=== PATIENT | male | born 1935 | race Caucasian/White ===

== ENCOUNTER 2016-05-14 21:27 | Inpatient (IN) | payer OTHER, BC ==
[~2016-05-14] VITALS: Ht 175.3 cm; Wt 123.4 kg
--- NOTE | 2016-05-14 22:15 | NUR ---
PT PRESENTS TO ED WITH C/O DIARRHEA AND GENERALIZED BODY WEAKNESS X6 DAYS. PT DENIES ANY N/V/C. PT REPORTS BODY ITCHING "FOR ABOUT A MONTH". PT REPORTS BROWN COLORED URINE. PT STATES HE HAS BEEN SEEING HIS PRIMARY MD REGARDING ABNORMAL LIVER TESTS AND HAS UPCOMING APPT FOR A "LIVER SCAN". PT DENIES ANY PAIN AT THIS TIME. RESPIRATIONS EVEN AND UNLABORED. NO ACUTE DISTRESS NOTED. BED IN LOW POSITION. CALL LIGHT WITHIN REACH.
--- NOTE | 2016-05-14 22:18 | NUR ---
DR. FLYNN AT BEDSIDE FOR MSE.
[2016-05-14 22:44] LABS: PLATELET COUNT 181 x10^3mcL (130-400)
[2016-05-14 22:47] LABS: RED CELL DISTRIBUTION WIDTH 18.9 % (11.5-14.5)
[2016-05-14 23:00] LABS: CALCIUM 9.4 mg/dL (8.5-10.1); CARBON DIOXIDE 23.1 mmol/L (21-32); CHLORIDE SERUM 104 mmol/L (98-107); CREATININE SERUM 2.2 mg/dL (0.7-1.3); GLUCOSE SERUM 204 mg/dL (74-106); POTASSIUM SERUM 5.4 mmol/L (3.5-5.1); SODIUM SERUM 137 mmol/L (136-145)
[2016-05-14 23:13] LABS: ALBUMIN 3.3 g/dL (3.4-5.0); ALKALINE PHOSPHATASE 657 U/L (46-116); ALT/SGPT 219 U/L (16-63); AMYLASE 89 U/L (25-115); AST/SGOT 306 U/L (15-37); BILIRUBIN TOTAL 4.2 mg/dL (0.20-1.00); LIPASE 887 IU/L (73-393)
[2016-05-14 23:22] LABS: METAMYELOCTE 3 % (0-2); MONOCYTE 10 % (0-7); SEGMENTED NEUTROPHILS 68 % (37-75)
[2016-05-14 23:24] LABS: PLATELET MORPHOLOGY LARGE PLATELET SEEN; rbc morphology (normal/abnorm) ABNORMAL (NORMAL)
--- NOTE | 2016-05-15 00:47 | NUR ---
PT REQ TO TAKE HOME MED OF INSULIN. PT INSTRUCTED TO NOT TAKE INSULIN AND THAT MEDICATIONS WILL BE PROVIDED DURING HOSPITAL STAY. PT VERBALIZED UNDERSTANDING. MADE AWARE.
[2016-05-15 00:51] LABS: UA SPECIFIC GRAVITY 1.015 (1.005-1.035); microscopic required? YES; urine erythrocyte 3+ (NEGATIVE)
--- NOTE | 2016-05-15 01:47 | NUR ---
PT SITTING IN BED, IN POSITION OF COMFORT. PT DENIES ANY PAIN AT THIS TIME. RESPIRATIONS EVEN AND UNLABORED. NO ACUTE DISTRESS NOTED. BED IN LOW POSITION. CALL LIGHT WITHIN REACH.
[2016-05-15] MEDS ORDERED: ZEBETA5 MG PO (01:56)
[2016-05-15] MEDS ORDERED: JANUMET 50-1,01 EACH PO (01:57)
[2016-05-15] MEDS ORDERED: LOSARTAN POTASS50 M1 PO (01:57)
[2016-05-15] MEDS ORDERED: LANSOPRAZOLE30 M2 PO (01:58)
[2016-05-15] MEDS ORDERED: COUMADIN7.5 MG PO (01:58)
[2016-05-15] MEDS ORDERED: DETROL LA2 MG PO (01:58)
[2016-05-15] MEDS ORDERED: LEVEMIR100 U/M1 SC (01:59)
[2016-05-15] MEDS ORDERED: DORZOLAMIDE HYD10 ML OU (01:59)
[2016-05-15 02:33] LABS: CHOLESTEROL/HDL RATIO 8.7
--- NOTE | 2016-05-15 02:40 | NUR ---
PT LAYING IN BED, IN POSITION OF COMFORT. RESPIRATIONS EVEN AND UNLABORED. NO ACUTE DISTRESS NOTED. BED IN LOW POSITION. CALL LIGHT WITHIN REACH.
[2016-05-15 02:42] LABS: T3 TOTAL 0.91 ng/mL
--- NOTE | 2016-05-15 02:50 | NUR ---
REPORT GIVEN TO ERICA CRUZ.
[2016-05-15 02:51] LABS: FREE T4 1.21 ng/dL (0.76-1.46); FREE THYROXINE INDEX 2.7 ug/dL (1.4-4.5); T4(THYROXINE) 10.3 ug/dL (4.7-13.3)
[2016-05-15 03:12] VITALS: BP 154/71
--- NOTE | 2016-05-15 03:14 | NUR ---
DURING TRANSPORT, PT NOTIFIED ME THAT HE TOOK HIS OWN HOME DOSE OF INSULIN. PT STATES, "I TOOK IT ABOUT AN HOUR AGO, I TOOK 70 UNITS OF LEVAMIR". NOTIFIED ERICA CRUZ UPON TRANSFER OF PT.
--- NOTE | 2016-05-15 03:30 | NUR ---
RECEIVED PT ON THE FLOOR. PT IN NO ACUTE DISTRESS OR DISCOMFORT. AOX4. DENIES OF BYRNE/DIZZINESS. ON TELE MON 10 SR WITH PVCS. PT DENIES OF CHEST DISCOMFORT. PER PULSES STRONG. NEG ON EDEMA. IN RA WITH SAT OF 98%. BREATHING EVENLY AND UNLABORED. NO SOB NOTED. BS ACTIVE. ABD ROUND AND OBESE. LAST BM 05/14/16. PT VOIDS FREELY WITHOUT ANY PAIN. GEN WEAKNESS. AMB ASSIST. USES CANE AT THE BEDSIDE. GEN JAUNDICE ON SKIN AND MILD JAUNDICE ON SCLERA. PT REPORTS OF SCRATCHING SELF AND HAS LFA DRY SCABS THAT ARE RESIDENT SERVICES MANAGER AND NO DRAINAGE NOTED. DENIES OF ANY PAIN. IV ON LAC PATENT. SAFETY MEASURES ENSURED. INSTRUCTED PT TO CALL FOR ANY NEEDS/ASSISTANCE. CALL LIGHT WITHIN REACH. WILL CONT TO MONITOR PT.
--- NOTE | 2016-05-15 03:30 | NUR ---
PT HAS REPORTED TO HAVE MEDICATED HIMSELF WITH 70 U OF LEVEMIR IN THE ED FOR 180 BS, WITH THE APPROVAL OF DR LOMBARDO. CHECKED BS ON THE FLOOR WITH THE VALUE OF 176. PT ALERT ORIENTED X4. DENIES ANY HYPOGLYCEMIC SYMPTOMS. WILL CONT TO CLOSELY MONITOR.
--- NOTE | 2016-05-15 05:30 | NUR ---
PT SLEPT COMFORTABLY AFTER ADMITTING PROCESS. IN NO ACUTE DISTRESS OR DISCOMFORT. EASILY AROUSABLE. SAFETY MEASURES ENSURED. CALL LIGHT IS WITHIN REACH.
--- NOTE | 2016-05-15 07:20 | NUR ---
RECEIVED REPORT FROM NOC RN AT THIS TIME. PATIENT IS GETTING AN ULTRA SOUND DONE. PATIENT IS AWAKE, ALERT AND OX4 TELE # [address] ON ROOM AIR, NO DISTRESS NOTED. IV TO LAC IS IN PLACE. SCDS AT THE BEDSIDE. INSTRUCTED ON USE OF CALL LIGHT. WILL CONTINUE TO MONITOR.
[2016-05-15 07:36] LABS: MAGNESIUM 1.9 mg/dL (1.8-2.4); PHOSPHOROUS 3.3 mg/dL (2.5-4.9)
--- NOTE | 2016-05-15 07:37 | NUR ---
BEDSIDE BLOOD GLUCOSE 118 AT THIS TIME. PATIENT AWAKE ALERT AND ORIENTED X4. WILL CONTINUE TO MONITOR.
[2016-05-15 07:50] LABS: BILIRUBIN DIRECT 3.63 mg/dL (0.0-0.2); BILIRUBIN TOTAL 4.2 mg/dL (0.20-1.00)
[2016-05-15 08:40] VITALS: BP 121/63
--- NOTE | 2016-05-15 09:24 | NUR ---
ECHO NOT DONE. PT. WAS FEELING VERY ANXIOUS AND DID NOT WANT TEST. PT. STATED HE HAD A ECHO DONE TWO PRIOR AT DR. BECKFORD OFFICE AND HAS REQUESTED FOR RESULTS TO BE SENT.
[2016-05-15 11:46] LABS: PLATELET COUNT 158 x10^3mcL (130-400)
[2016-05-15 12:04] LABS: CALCIUM 9.2 mg/dL (8.5-10.1); CARBON DIOXIDE 26.1 mmol/L (21-32); CHLORIDE SERUM 109 mmol/L (98-107); CREATININE SERUM 1.8 mg/dL (0.7-1.3); GLUCOSE SERUM 128 mg/dL (74-106); MAGNESIUM 1.9 mg/dL (1.8-2.4); PHOSPHOROUS 3.3 mg/dL (2.5-4.9); POTASSIUM SERUM 5.2 mmol/L (3.5-5.1); SODIUM SERUM 142 mmol/L (136-145)
--- NOTE | 2016-05-15 12:13 | NUR ---
PATIENT RESTING IN BED, NO DISTRESS NOTED. TECH IN TO [facility] ECHO AT THIS TIME. CALL LIGHT WITH IN REACH. WILL CONTINUE TO MONITOR.
--- NOTE | 2016-05-15 12:15 | NUR ---
PATIENT RESTING IN BED, AWAKE ALERT AND O X4. LLE ELEVATED ON PILLOWS WITH K PAD IN PLACE. PATIENT STATES HE HAS THROBBING PAIN TO LLE 7/10. WILL MEDICATE ORDRED FOR PAIN. WILL CONTINUE TO MONITOR.
[2016-05-15 12:26] LABS: RED CELL DISTRIBUTION WIDTH 18.9 % (11.5-14.5)
[2016-05-15 12:28] LABS: MONOCYTE 9 % (0-7); MYELOCYTE 2 % (0-2); SEGMENTED NEUTROPHILS 70 % (37-75); rbc morphology (normal/abnorm) ABNORMAL (NORMAL); target cell (codocyte) 1+
--- NOTE | 2016-05-15 13:11 | NUR ---
NOTIFED DR. KEISHA Sifuentes 5.2 AT THIS TIME
[2016-05-15 13:55] VITALS: BP 140/75
--- NOTE | 2016-05-15 15:58 | NUR ---
PATIENT RESTING IN BED NO DISTRESS NOTED. DENIES ANY PAIN. FAMILY IS AT THE BEDSIDE. WILL CONTINUE TO MONITOR.
[2016-05-15 17:32] VITALS: BP 142/57
--- NOTE | 2016-05-15 18:31 | NUR ---
PATIENT RESTING IN BED, AWAKE, ALERT AND O X 4. TELE # [address] ON ROOM AIR, NO DISTRESS NOTED. DENIES PAIN AT THIS TIME. MILD YELLOWING OF BOTH SCLERAE AND SKIN NOTED. IV TO LAC INTACT AND PATENT INFUSING NS AT 160ML/HR. SCDS AT THE BEDSIDE. FAMILY AT THE BEDSIDE.
--- NOTE | 2016-05-15 19:30 | NUR ---
PT RESTING COMFORTABLY IN BED, IN NO ACUTE DISTRESS OR DISCOMFORT. AAOX4. DENIES OF BYRNE/DIZZINESS. ON TELE MON 10 SR WITH PVCS. DENIES OF ANY CHEST DISCOMFORT. STILL PRESENTING WITH MILD JAUNDICE ON THE SCLERA. PER PULSES MOD. NEG ON EDEMA. SCDS ARE APPLIED. IN RA WITH SAT OF 98%. BREATHING EVENLY AND UNLABORED. NO SOB NOTED. BS ACTIVE. LAST BM TODAY 05/15/16 LOOSE STOOL. ABD ROUND AND OBESE. VOIDS FREELY TO THE BATHROOM WITHOUT ANY PAIN. GEN WEAKNESS. AMBULATES STEADILY WITH A CANE AND ASSISTANCE. GENERALIZED JAUNDICE ON SKIN. PT HAS LFA DRY SCABS FROM SCRATCHING THAT ARE PHARMACEUTICAL SALES AND NO DRAINAGE NOTED. DENIES OF ANY PAIN. IV ON LAC PATENT. SAFETY MEASURES ENSURED. FAMILY IS ON THE BEDSIDE. INSTRUCTED PT AND FAMILY TO CALL FOR ANY NEEDS/ASSISTANCE. CALL LIGHT IS WITHIN REACH. WILL CONT TO MONITOR PT.
[2016-05-15 22:37] VITALS: BP 136/63
--- NOTE | 2016-05-16 05:30 | NUR ---
PT WAS ABLE TO SLEEP COMFORTABLY THROUGH OUT THE NIGHT. WAS IN NO ACUTE DISTRESS OR DISCOMFORT. SAFETY MEASURES ENSURED. CALL LIGHT WITHIN REACH.
[2016-05-16 06:06] VITALS: BP 144/66
[2016-05-16 06:28] LABS: ALKALINE PHOSPHATASE 554 U/L (46-116); ALT/SGPT 209 U/L (16-63); AMYLASE 66 U/L (25-115); AST/SGOT 302 U/L (15-37); BILIRUBIN TOTAL 6.12 mg/dL (0.20-1.00); CALCIUM 8.9 mg/dL (8.5-10.1); CHLORIDE SERUM 115 mmol/L (98-107); CREATININE SERUM 1.5 mg/dL (0.7-1.3); GLUCOSE SERUM 117 mg/dL (74-106); LIPASE 621 IU/L (73-393); MAGNESIUM 1.7 mg/dL (1.8-2.4); PHOSPHOROUS 3.2 mg/dL (2.5-4.9); POTASSIUM SERUM 5.1 mmol/L (3.5-5.1); SODIUM SERUM 146 mmol/L (136-145)
[2016-05-16 06:31] LABS: ALBUMIN 2.7 g/dL (3.4-5.0); TOTAL PROTEIN, SERUM 5.9 g/dL (6.4-8.2)
[2016-05-16 07:12] LABS: PLATELET COUNT 144 x10^3mcL (130-400)
[2016-05-16 07:13] LABS: RED CELL DISTRIBUTION WIDTH 18.8 % (11.5-14.5)
--- NOTE | 2016-05-16 07:30 | NUR ---
PATIENT IS IN BED, AWAKE ALERT AND ORIENTED. HL PATENT, FLUSHED WELL. LUNGS CLEAR ON ROOM AIR. RESP EVEN AND UNLABORED. PT APPEARS TO BE JAUNDICED, NO C/O ITCHING AT THIS TIME. SCD'S IN PLACE. PATIENT NOTED TO HAVE SCRATCHES AND SCABS ON KATIE UPPER EXTREM LUSTERER. PATIENT IS OBESE, ABD SOFT BOWEL SOUNDS ACTIVE. PER PATIENT HE HAS STRESS INCONT AT TIMES. USES URINAL PRN. PATIENT HAS A INTERVERTED PENIS, BUT DENIES HAVING ANY FUNGUS OR REDNESS AT THIS TIME. LBM 2 DYAS AGO PER PT. AMBULATES WITH CANE AD MARY. DENIES ANY PAIN. NPO FOR GI CONSULT AT THIS TIME. WILL CONTINUE TO MONITOR.
--- NOTE | 2016-05-16 07:55 | NUR ---
DR ROWE AND MEDICAL TEAM INTO SEE PATIENT AND DISCUSS PLANO OF CARE.
[2016-05-16 09:17] VITALS: BP 127/49
[2016-05-16 10:06] LABS: BAND NEUTROPHIL 0 % (0-10); BASOPHIL 0 % (0-2); METAMYELOCTE 2 % (0-2); MONOCYTE 8 % (0-7); SEGMENTED NEUTROPHILS 72 % (37-75); rbc morphology (normal/abnorm) ABNORMAL (NORMAL)
[2016-05-16 10:07] LABS: target cell (codocyte) 1+
[2016-05-16 13:30] VITALS: BP 124/76
--- NOTE | 2016-05-16 14:59 | NUR ---
Initial Nutrition Assessment Dx: GI Disorder with Diarrhea poss 2/2 Acute Gastroenteritis PMHx: Hypertension (37 years), Diabetes Mellitus (37 years), Glaucoma, b/l eyes (6 years), b/l Macular-Degeneration (5 years), Morbid Obesity, Ascending Aortic Anurysm s/p Repair w/ Insertion of Medtronic Aortic Dc Valved Collagen Conduit (02/[address] Stephen Huggins, @[facility]), Aortic Valve Replacement with Medtronic Aortic, Dc Valved Collagen Conduit (mechanical valve, 02/[address] Stephen Huggins, @[facility]), h/o Lymphoma s/p biopsy, benign PSHx: Appendectomy (at 20yo), Cholecystectomy, Cataract Removal (left eye, 11/2012), Hernia Repair (right, inguinal (47yo)), Ascending Aortic Anurysm and Aortic Valve Replacement w/ medtronic, aortic, dc valved collagen conduit (02/2002, by Dr. Huggins, @[facility]), Tonsillectomy, Vasectomy x2, bone spur b/l heels removed, Eye Lid Surgery, b/l (1987) Labs: Na+ 146H, BG 117H, BUN 26H, Cr 1.5H, Alb 2.7L, A1C 6.1, T Bili 6.12H, AST 302H, ALT 209H, ALP 554H, Lipase 621H, Mg 1.7L, H/H 9.9/30L Meds: takes Warfarin at home, colace, D50, humulin R, kayexalate, morphine, protonix, theragran, vitamin K, zofran Current Diet Order: Full Liquids (05/16-Lunch) PO Intakes: 100% L (05/16) Ht: 175cm,69". Wt: 274lbs, 124.73kg. BMI: 40.6 kg/m2 (Obese Class III) IBW:160 lb,72.7 kg. %IBW: 171%. UBW: unable to obtain Age: 81 Y/O M Food Allergies: NKFA Skin:has dry scabs from scratching- no pressure injuries . Seven:19 Edema: None noted GI: bowel sounds active, abd round and obese. Last BM:1 formed (05/15) MD Consult: coumadin toxicity, would benefit from coumadin teaching w/ dietary focus. RN Trigger: N/V/D > 3 days Pt admitted w/GI Disorder with Diarrhea poss 2/2 Acute Gastroenteritis. As per doctor's progress note 05/16-PT 40.9 (high), INR 3.9 (high), PTT 61.2 (prolonged) - collected 05/16/16 at 5:45, Stool culture: Shiga toxin 1 and 2 negative, ECG showed normal sinus rhythm, left axis deviation and left ventricular hypertrophy with repolarization abnormality. Hep Panel was non-reactive. Pt seen at bedside w/ no family present, pt had increased adiposity in abd region and extremities consistent w/ BMI, the pt appeared to be depressed, when the RD introduced self the pt requested not to speak to RD d/t just being told by Dr. Bee that he may have pancreatic cancer, the RD acknowleged and left educational materials on bedside table and exited the room, the RD spoke to CAR LOT ATTENDANT, reports the pt consumed 100% of full liquid tray for lunch, denies GI issues. The RD F/U w/ Dr. Ware in regards to Dr. Bee's visit w/ pt, he states Dr. Bee does suspect pancreatic cancer and the plan is to due an MRCP when the INR goes down. The RD will attempt to F/U to review w/ pt on diet and coumadin DNI when the pt is more agreeable. Malnutrition alert form completed 05/16/2016. Problem with: N: None. V: None. D: none. C: None. Problem with: Chewing: None. Swallowing: None. Current Appetite: Good Recent Weight Change: unable to assess % Weight Change: unable to assess Vitamin/Supplement Use: unable to obtain Diet at Home: unable to obtain Physical Activity: ambulates via cane Education: none Estimated Nutritional Needs Based on IBW 160 lb, 72.7kg Energy: 9757-3593 kcal/day (25-30 kcal/kg for Geriatric Maintenance) Protein: 73-87 g/day (1-1.2 g/kg for Geriatric Maintenance) Fluid: 2137-8383 ml/day (25-30 ml/kg for Geriatric Maintenance) or per MD Nutrition Diagnosis 1. Food and nutrition related knowledge deficit related to no prior nutrition education on coumadin and vitamin K foods 2/2 taking coumadin at home, coumadin toxicity as evidenced by pt w/ Nutrition education consult Intervention 1. C/W Full Liquid diet. 2. If pt is able to tolerate diet, consider advancing to [facility] 60gm +Cardiac. Make food preferences known. 3. If pt is unable to tolerate diet w/in 5-7 days, consider TPN. 4. B-complex and Folic acid daily. Monitor/Evaluate Goal: PO intakes to meet >/=75% of estimated needs w/ tolerance; Pt open to nutrition education at F/U Monitor: PO intakes/tolerance, labs, skin integrity, GI function, wt, nutrition knowledge F/U in 2-3 days as HIGH risk (05/18-05/19)
--- NOTE | 2016-05-16 15:22 | NUR ---
1. C/W Full Liquid diet. 2. If pt is able to tolerate diet, consider advancing to [facility] 60gm +Cardiac. Make food preferences known. 3. If pt is unable to tolerate diet w/in 5-7 days, consider TPN. 4. B-complex and Folic acid daily.
--- NOTE | 2016-05-16 16:30 | NUR ---
DR VALDES NOTIFIED OF PATIENT'S MG LEVEL OF 1.7.
--- NOTE | 2016-05-16 16:31 | NUR ---
DR LAU AND DR VARGAS HAVE BEEN INTO SEE PATIENT THIS AFTERNOON. PATIENT INSTRUCTED ON THE NEED OF STOOL COLLECTION. DR SMITH HAS BEEN IN TO SPEAK TO PATIENT ABOUT PATIENT'S PLAN OF CARE AND ANY CONCERNS PATIENT HAS. NO ACUTE DISTRESS NOTED AT THIS TIME. WILL CONTINUE TO MONITOR.
[2016-05-16 17:00] VITALS: BP 118/85; BP 90/55
--- NOTE | 2016-05-16 18:05 | NUR ---
PATIENT SITTING UP IN BED. NO CHANGE IN CONDITION NOTED. WILL ENDORSE TO NOC NURSE.
--- NOTE | 2016-05-16 19:55 | NUR ---
RECEIVED PT FROM AM NURSE IN NO ACUTE DISTRESS. LAYING IN BED COMFORTABLY. A/OX4. TELE #10 SR WITH PACS. DENIES ANY PAIN AT THIS TIME. PULSES PALPABLE AND EVEN. NO EDEMA NOTED. LUNGS CLEAR ON RA. BS ACTIVE X4 QUADRANTS. INFORMED PT OF STOOL COLLECTION. VOIDS FREELY. GENERALIZED WEAKNESS NOTED. AMBULATORY WITH CANE. CANE AT BEDSIDE. MILD JAUNDICE NOTED. SKIN WARM DRY AND INTACT. IV TO LAC INTACT AND PATENT. SALINE LOCK AT THIS TIME. BED IN LOWEST POSITION. CALL LIGHT INSTRUCTIONS REINFORCED. FAMILY AT BEDSIDE. WILL CONT TO MONITOR.
[2016-05-16 21:34] VITALS: BP 148/56
--- NOTE | 2016-05-17 05:14 | NUR ---
SLEPT PERIODICALLY THROUGHOUT SHIFT. NO SIGNIFICANT CHANGES. ALL NEEDS MET AND ATTENDED TO. WILL CONT TO MONITOR AND ENDORSE ALL CARE TO ONCOMING NURSE.
[2016-05-17 05:54] LABS: PLATELET COUNT 152 x10^3mcL (130-400)
[2016-05-17 06:06] VITALS: BP 144/69
[2016-05-17 06:12] LABS: CALCIUM 9.4 mg/dL (8.5-10.1); CARBON DIOXIDE 23.7 mmol/L (21-32); CHLORIDE SERUM 112 mmol/L (98-107); CREATININE SERUM 1.3 mg/dL (0.7-1.3); GLUCOSE SERUM 174 mg/dL (74-106); POTASSIUM SERUM 4.6 mmol/L (3.5-5.1); SODIUM SERUM 145 mmol/L (136-145)
[2016-05-17 07:14] LABS: RED CELL DISTRIBUTION WIDTH 19.2 % (11.5-14.5)
--- NOTE | 2016-05-17 07:30 | NUR ---
PATIENT IS SITTING UP IN BED. REMAINS JAUNDICED. DENIES ANY PAIN OR DISCOMFORT. HL PATENT. RESP EVEN AND UNLABORED, LUNGS CLEAR ON ROOM AIR. PATIENT IS OBESE ABD SOFT BOWEL SOUNDS ACTIVE. VOIDING WELL, USES URIANL. LBM THREE DAYS AGO. TOLERATING FULL LIQUID DIET WELL. NO EDEMA NOTED. SCD'S IN PLACE. WILL CONTINUE TO MONITOR.
--- NOTE | 2016-05-17 07:45 | NUR ---
DR Gaston LAU AT BEDSIDE TO SPEAK WITH PATIENT AND PATIENT'S DAUGHTER ABOUT PLAN OF CARE.
--- NOTE | 2016-05-17 08:00 | NUR ---
DR CURRY AND MEDICAL TEAM INTO SEE PATIENT AND DISCUSS PLAN OF CARE. PATIENT'S DAUGHTER WAS AT BEDSIDE.
[2016-05-17 09:43] LABS: ATYPICAL LYMPH 2 %; BAND NEUTROPHIL 0 % (0-10); BASOPHIL 0 % (0-2); MONOCYTE 7 % (0-7); SEGMENTED NEUTROPHILS 62 % (37-75); rbc morphology (normal/abnorm) ABNORMAL (NORMAL)
[2016-05-17 09:45] LABS: PLATELET MORPHOLOGY PLATELETS NORMAL
[2016-05-17 10:30] LABS: BILIRUBIN DIRECT 9.99 mg/dL (0.0-0.2)
[2016-05-17 10:47] LABS: ALBUMIN 2.8 g/dL (3.4-5.0); TOTAL PROTEIN, SERUM 5.9 g/dL (6.4-8.2)
[2016-05-17 10:48] LABS: BILIRUBIN TOTAL 12.22 mg/dL (0.20-1.00)
--- NOTE | 2016-05-17 10:55 | NUR ---
DR VALDES PAGED PATIENT'S BILI RESULTS AT THIS TIME.
[2016-05-17 12:57] VITALS: BP 120/59
--- NOTE | 2016-05-17 13:17 | NUR ---
PATIENT HAS BEEN OOB AMBULATING AD MARY WITH USE OF HIS CANE. PATIENT NPO FOR MRI TODAY. CHECK OFF LIST COMPLETED AND PATIENT SIGNED. DAUGHTER HAS BEEN INTO SEE PATIENT. NO ACUTE DISTRESS NOTED. DR VALDES NOTIFIED OF PATIENT'S BILI LABS TODAY.
--- NOTE | 2016-05-17 14:00 | NUR ---
PATIENT WENT DOWN TO [place] FOR MRI ORDERED VIA W/C. WILL CONTINUE TO MONITOR UPON RETURN TO THE FLOOR.
--- NOTE | 2016-05-17 16:01 | NUR ---
PATIENT BACK FROM MRI. SITTING UP IN BED WITH FAMILY MEMBERS AT BEDSIDE. DENIES ANY PAIN OR DISCOMFORT. PATIENT WAS GIVEN MS IV WHEN DOWN FOR MRI FOR C/O BACK PAIN 09/22 WHILE LYING FLAT FOR TEST BY TWILA RN. NO ACUTE DISTRESS NOTED. WILL CONTINUE TO MONITOR.
[2016-05-17 17:16] VITALS: Ht 175.3 cm; Wt 123.4 kg
--- NOTE | 2016-05-17 17:35 | NUR ---
HEPARIN DRIP STARTED AT 1500U/HR BY LAVON CRUZ ORDERED. NEXT PTT ORDERED FOR 2335. PATIENT SIGNED CONSENT FOR ERCP AND MOD SEDATION AFTER SPEAKING TO DR LAU AND SRAAH. NPO AFTER MIDNOC. DAUGHTER AT BEDSIDE. WILL CONTINUE TO MONITOR.
--- NOTE | 2016-05-17 17:36 | NUR ---
HEPARIN DRIP STARTED ORDERED. HEPARIN BOLUS OF 7400 UNITS GIVEN AND HEPARIN DRIP STARTED AT 1500 UNITS/HR. NEXT PTT ORDERED AT 2335H PER PROTOCOL.
[2016-05-17 18:23] VITALS: BP 108/62
--- NOTE | 2016-05-17 19:32 | NUR ---
RECEIVED REPORT FROM PREVIOUS SHIFT. PT IS A/OX4. DENIES CHEST PAIN/PRESSURE. DENIES SOB ON RA. IV PATENT AND INFUSING WELL WITH NO S/S OF INFILTRATION. HEPARIN DRIP INFUSING AT 1500 UNITS/HR PER PROTOCOL. PTT TO BE DRAWN AT 2330. DAUGHTER NILESH AT BEDSIDE. CALL LIGHT WITHIN REACH, BED IN LOW POSITION. WILL CONTINUE TO MONITOR.
[2016-05-17 21:34] VITALS: BP 104/40
--- NOTE | 2016-05-18 00:36 | NUR ---
AFTER 1L BOLUS BP 165/65, MAP 88. NO ACUTE DISTRESS. WILL CONTINUE TO MONITOR
--- NOTE | 2016-05-18 01:08 | NUR ---
HEPARIN INFUSION HELD FOR 1 HOUR PER PROTOCOL FOR PTT 115.5. WILL CONTINUE TO MONITOR
[2016-05-18 05:51] VITALS: BP 146/62
[2016-05-18 06:22] LABS: PLATELET COUNT 150 x10^3mcL (130-400)
[2016-05-18 06:35] LABS: CALCIUM 9.2 mg/dL (8.5-10.1); CHLORIDE SERUM 112 mmol/L (98-107); CREATININE SERUM 1.3 mg/dL (0.7-1.3); GLUCOSE SERUM 166 mg/dL (74-106); POTASSIUM SERUM 4.9 mmol/L (3.5-5.1); SODIUM SERUM 145 mmol/L (136-145)
[2016-05-18 06:45] LABS: RED CELL DISTRIBUTION WIDTH 19.4 % (11.5-14.5)
--- NOTE | 2016-05-18 07:10 | NUR ---
REASSESSMENT DONE. PT IN LOW FOWLERS. COOPERATIVE OF CARE. ON TELE 10 DENIES CP, SOB. JAUNDICE NOTED TO SCLERAE, FACE. PT DENIES NAUSEA, VOMITING, DIARRHEA, ABD PAIN. IV HEP LOCKED TO LAC AND LEFT HAND. PT AMBULATES WITH CANE. BED IN LOW POSITION, CALL LIGHT WITHIN REACH. WILL CONTINUE TO MONITOR.
--- NOTE | 2016-05-18 09:50 | NUR ---
PT PICKED UP BY OR STAFF. PT TRANSPORTED VIA BED. NO DISTRESS NOTED AT MOMENT.
[2016-05-18 09:58] LABS: BAND NEUTROPHIL 0 % (0-10); BASOPHIL 0 % (0-2); MONOCYTE 12 % (0-7); SEGMENTED NEUTROPHILS 63 % (37-75)
[2016-05-18 09:59] LABS: PLATELET MORPHOLOGY PLATELETS DECREASED; rbc morphology (normal/abnorm) ABNORMAL (NORMAL)
[2016-05-18 10:35] VITALS: BP 163/64
--- NOTE | 2016-05-18 12:02 | NUR ---
PT BACK FROM GI LAB. TRANSPORTED VIA BED. PT SLEEPY. VS STABLE AT MOMENT. MADE COMFORTABLE IN BED. CALL LIGHT WITHIN REACH. WILL CONTINUE TO MONITOR.
[2016-05-18 15:25] VITALS: BP 139/47
[2016-05-18 18:25] VITALS: BP 137/59
--- NOTE | 2016-05-18 19:00 | NUR ---
PT IN FOWLERS. NO DISTRESS NOTED AT MOMENT. PT REMAINS JAUNDICED AT SCLERAE. HEPARIN ORDERS TO BE RESUMED, ENDORSED CARE TO ONCOMING NURSE.
--- NOTE | 2016-05-18 19:47 | NUR ---
PT. AWAKE, ALERT, ORIENTED X4, DENIES HEADACHE OR DIZZINESS. BREATH SOUNDS CLEAR THROUGHOUT LUNG GAY, RESP. EVEN, UNLABORED. NO SOB NOTED. DENIES ANY CHESTPAIN. ABD. SOFT AND ROUND, BOWEL SOUNDS ACTIVE. PEDAL PULSES STRONG KATIE, NO EDEMA NOTED TO EXTREMITIES. IV HEPLOCKED AT THIS TIME. HEPARIN ORDER BEING CLARIFIED BY MUTUEL MACHINE OPERATOR. COUMADIN PO ORDERED FOR 1999 TONIGHT. SON AT BEDSIDE. CALL LIGHT WITHIN REACH.
--- NOTE | 2016-05-18 20:44 | NUR ---
Dr. Garcia called and updated regarding pts Heparin drip and Coumadin. Dr. Garcia wants the Heparin resume and to follow Heparin protocol. Dr. Burt made aware.
--- NOTE | 2016-05-18 22:07 | NUR ---
PTT LEVEL 31.6. HEPARIN PROTOCOL RESTARTED. PT. RECEIVED BOLUS OF 7400 UNITS OF HEPARIN. HEPARIN DRIP STARTED AT 1500 UNITS. NEXT PTT ON 05/19 AT 0400.
[2016-05-18 22:16] VITALS: BP 140/55
--- NOTE | 2016-05-19 02:24 | NUR ---
PT. APPEARS TO BE COMFORTABLE, EYES CLOSED AND SNORING. NO C/O PAIN THUS FAR. CALL LIGHT REMAINS WITHIN REACH.
[2016-05-19 04:58] LABS: PLATELET COUNT 148 x10^3mcL (130-400)
[2016-05-19 05:07] LABS: CALCIUM 8.9 mg/dL (8.5-10.1); CARBON DIOXIDE 24.6 mmol/L (21-32); CHLORIDE SERUM 110 mmol/L (98-107); CREATININE SERUM 1.3 mg/dL (0.7-1.3); GLUCOSE SERUM 147 mg/dL (74-106); POTASSIUM SERUM 3.8 mmol/L (3.5-5.1); SODIUM SERUM 142 mmol/L (136-145)
[2016-05-19 05:14] LABS: RED CELL DISTRIBUTION WIDTH 18.7 % (11.5-14.5)
[2016-05-19 05:23] LABS: ATYPICAL LYMPH 2 %; BAND NEUTROPHIL 2 % (0-10); MONOCYTE 9 % (0-7); SEGMENTED NEUTROPHILS 62 % (37-75)
[2016-05-19 05:26] LABS: PLATELET MORPHOLOGY LARGE PLATELET SEEN; rbc morphology (normal/abnorm) ABNORMAL (NORMAL)
--- NOTE | 2016-05-19 05:52 | NUR ---
PT. AWAKE, SITTING UP IN BED, WATCHING TV. NO COMPLAINTS THROUGHOUT THE NIGHT. SLEPT WELL. IV HEPARIN PLACED ON HOLD AND PTT REORDERED AT 0800 PER PROTOCOL. PTT LEVEL CAME BACK GREATER THAN 150. PT. MADE AWARE OF LEVEL AND NEXT BLOOD DRAW. CALL LIGHT REMAINS WITHIN REACH. WILL ENDORSE PT. CARE TO INCOMING NURSE.
[2016-05-19 06:31] VITALS: BP 132/61
--- NOTE | 2016-05-19 07:10 | NUR ---
REASSESSMENT DONE. PT AWAKE, COOPERATIVE OF CARE. PT ON TELE. DIMINISHED LUNG SOUNDS TO BILATERAL BASES. ACTIVE BOWEL SOUNDS TO ALL QUADRANTS. JAUNDICE NOTED TO SCLERAE. PT AMBULATES WITH ASSIST OF CANE. IV TO LFA, LEFT HAND. HEP LOCKED AT MOMENT. BED IN LOW POSITION, CALL LIGHT WITHIN REACH WILL CONTINUE TO MONITOR.
[2016-05-19 08:49] VITALS: BP 132/60
[2016-05-19 09:21] LABS: BILIRUBIN DIRECT 4.97 mg/dL (0.0-0.2); BILIRUBIN TOTAL 5.98 mg/dL (0.20-1.00)
[2016-05-19 09:22] LABS: ALBUMIN 2.7 g/dL (3.4-5.0); TOTAL PROTEIN, SERUM 5.7 g/dL (6.4-8.2)
--- NOTE | 2016-05-19 10:25 | NUR ---
PTT LAB VALUE: 73.8 HEPARIN DRIP RESUMED AT 1300UNITS/HR. PTT ORDERED IN 4HRS. WILL CONTINUE TO MONITOR.
--- NOTE | 2016-05-19 12:20 | NUR ---
PASSED [facility]. PT TOLERATING WELL. PT TALKING TO FAMILY MEMBER. NO DISTRESS NOTED. PT DENIES ABD PAIN. CALL LIGHT WITHIN REACH.
[2016-05-19 12:58] VITALS: BP 149/75
--- NOTE | 2016-05-19 15:50 | NUR ---
RECEIVED PTT LAB VALUE: 63.2. PER PROTOCOL NO CHANGE IN INFUSION RATE. ORDERED PTT FOR 4HRS. WILL CONTINUE TO MONITOR.
[2016-05-19 18:45] VITALS: BP 137/62
[2016-05-19] MEDS ORDERED: LOV40I SC (19:14)
[2016-05-19] MEDS ORDERED: COU5 PO (19:23)
[2016-05-19] MEDS ORDERED: LOV80I SC (19:23)
[2016-05-19] MEDS ORDERED: LIPI20 PO (19:42)
[2016-05-19 19:54] VITALS: BP 137/62
--- NOTE | 2016-05-19 20:37 | NUR ---
BED AVAILABLE AT [facility]. PT. MADE AWARE, DAUGHTER AT BEDSIDE WAS ALSO MADE AWARE. INITIAL PLANS WERE FOR DISCHARGE HOME, BUT PT. WILL BE GOING TO [facility]. AWAITING COMPLETTION OF DISCHARGE ORDERS. NIGHT MEDICATION GIVEN, DETROL, EYE DROP, AND COLACE. PT. ALSO GIVEN 6 UNITS OF REGULAR INSULIN FOR BLOOD SUGAR LEVEL OF 229. RECEIVED ORDERS FOR HEPARIN BOLUS OF 3000 UNITS, TO BE GIVEN WHEN [facility] ARRIVES. FAFMILY REMAINS AT BEDSIDE.
[2016-05-19] MEDS ORDERED: LOV40I SQ (20:48)
--- NOTE | 2016-05-19 21:20 | NUR ---
PT. BEING TRANSFERRED OUT TO [facility] VIA [facility], FAMILY AT BEDSIDE. PT. GIVEN IV BOLUS OF 3000 UNITS HEPARIN. IV FLUSHED AND HEPLOCKED THERE AFTER. PT.'S OWN MEDICATION GIVEN TO HIM, HE'S TAKING THEM TO [facility] WITH HIM. BELONGINGS ALSO TAKEN WITH FAMILY AND SOME ACCOMPANYING HIM TO [facility]. ALL CONCERNS ADDRESSED.
--- NOTE | 2016-05-19 21:57 | NUR ---
REPORT GIVEN TO ANTHONY GUILLERMO. ACCEPTING NURSE ON BREAK AT THIS TIME. [facility] PHONE NUMBER MADE AVALIABLE TO NURSE AT [facility].
== END 2016-05-19 21:19 | disposition short-term general hospital (02) | DRG 435 ==
LOC: ED 21:27 → DU 05-15 01:44
PROVIDERS: Emergency Medicine; Family Medicine; Internal Medicine Gastroenterology; ADMIT Family Medicine
PROC: 0F798DZ Dilation of Common Bile Duct with Intraluminal Device, Via Natural or Artificial Opening Endoscopic (ICD-10-PCS; principal; 2016-05-18 09:00)
PROC: 0DJ08ZZ Inspection of Upper Intestinal Tract, Via Natural or Artificial Opening Endoscopic (ICD-10-PCS; principal; 2016-05-18 09:00)
PROC: 0FB98ZX Excision of Common Bile Duct, Via Natural or Artificial Opening Endoscopic, Diagnostic (ICD-10-PCS; principal; 2016-05-18 09:00)
PROC: BF10YZZ Fluoroscopy of Bile Ducts using Other Contrast (ICD-10-PCS; 2016-05-18 09:00)
DX: C25.9 Malignant neoplasm of pancreas, unspecified (principal); K85.90 Acute pancreatitis without necrosis or infection, unspecified; N17.0 Acute kidney failure with tubular necrosis; E43 Unspecified severe protein-calorie malnutrition; K83.1 Obstruction of bile duct; B37.49 Other urogenital candidiasis; Z68.41 Body mass index [BMI] 40.0-44.9, adult; N18.4 Chronic kidney disease, stage 4 (severe); I13.10 Hypertensive heart and chronic kidney disease without heart failure, with stage 1 through stage 4 chronic kidney disease, or unspecified chronic kidney disease; E11.51 Type 2 diabetes mellitus with diabetic peripheral angiopathy without gangrene; K52.9 Noninfective gastroenteritis and colitis, unspecified; E87.5 Hyperkalemia; E83.42 Hypomagnesemia; E78.5 Hyperlipidemia, unspecified; H40.9 Unspecified glaucoma; E66.01 Morbid (severe) obesity due to excess calories; R80.8 Other proteinuria; T45.515A Adverse effect of anticoagulants, initial encounter; Y92.018 Other place in single-family (private) house as the place of occurrence of the external cause; Z79.4 Long term (current) use of insulin; Z95.2 Presence of prosthetic heart valve; Z87.891 Personal history of nicotine dependence
CPT/HCPCS: 43235; 43262; 74181; 82962; 83880; 84439; 87046; 87046-59; C1769; C2625; C9113; J0295; J1610; J1644; J1720; J2175; J2250; J2270; J3010; J3430; J7030; J7040; J7050; Q0092; Q9966; Q9967

== ENCOUNTER → 2016-05-24 | Outpatient (CLI) | payer OTHER, BC ==
[~2016-05-24] MED LIST: COU5 PO; COUMADIN7.5 MG PO; DETROL LA2 MG PO; DORZOLAMIDE HYD10 ML OU; JANUMET 50-1,01 EACH PO; LANSOPRAZOLE30 M2 PO; LEVEMIR100 U/M1 SC; LIPI20 PO; LOSARTAN POTASS50 M1 PO; LOV40I SC; LOV40I SQ; LOV80I SC; ZEBETA5 MG PO
== END | disposition home or self-care (01) ==
LOC: LB 09:50
DX: Z95.2 Presence of prosthetic heart valve (principal)

== ENCOUNTER 2016-06-12 08:03 | Inpatient (IN) | payer OTHER, BC ==
[~2016-06-12] VITALS: Ht 172.7 cm; Wt 124.3 kg
--- NOTE | 2016-06-12 08:05 | NUR ---
PT BIB [facility], FOUND DOWN AT HOME AFTER ATTEMPTING TO USE COMMODE. PT AAOX3 WITH SOME CONFUSION NOTED. PT STATED FEELING GENERALIZED WEAKNESS, MORE NOTED TO LT LEG.
--- NOTE | 2016-06-12 08:45 | NUR ---
PT TAKEN OFF OF BED VALDOVINOS. PT STATED FEELING CONSTIPATED. RADIOLOGY AT BEDSIDE.
--- NOTE | 2016-06-12 08:49 | NUR ---
PT OFF TO CT SCAN.
[2016-06-12] MEDS ORDERED: COUMADIN5 MG PO (08:53)
[2016-06-12] MEDS ORDERED: ZOLOFT50 MG PO (08:54)
[2016-06-12 09:03] LABS: PLATELET COUNT 177 x10^3mcL (130-400)
[2016-06-12 09:04] LABS: CALCIUM 8.8 mg/dL (8.5-10.1); CARBON DIOXIDE 16.3 mmol/L (21-32); CHLORIDE SERUM 104 mmol/L (98-107); CREATININE SERUM 3.1 mg/dL (0.7-1.3); GLUCOSE SERUM 193 mg/dL (74-106); POTASSIUM SERUM 3.9 mmol/L (3.5-5.1); SODIUM SERUM 140 mmol/L (136-145)
[2016-06-12 09:05] LABS: RED CELL DISTRIBUTION WIDTH 16.4 % (11.5-14.5)
[2016-06-12 09:09] LABS: ALKALINE PHOSPHATASE 424 U/L (46-116); ALT/SGPT 103 U/L (16-63); AST/SGOT 193 U/L (15-37); BILIRUBIN TOTAL 4.17 mg/dL (0.20-1.00); TOTAL PROTEIN, SERUM 6.5 g/dL (6.4-8.2)
[2016-06-12 09:16] LABS: ALBUMIN 2.7 g/dL (3.4-5.0)
[2016-06-12 09:23] LABS: ATYPICAL LYMPH 1 %; BAND NEUTROPHIL 9 % (0-10); METAMYELOCTE 3 % (0-2); MONOCYTE 5 % (0-7); SEGMENTED NEUTROPHILS 78 % (37-75)
[2016-06-12 09:25] LABS: PLATELET MORPHOLOGY LARGE PLATELET SEEN; rbc morphology (normal/abnorm) ABNORMAL (NORMAL)
--- NOTE | 2016-06-12 09:45 | NUR ---
DR GRAF MADE AWARE OF TROP/PTT/WBC. FAMILY AT BEDSIDE.
--- NOTE | 2016-06-12 09:51 | NUR ---
DR GRAF MADE AWARE OF LACTIC ACID
--- NOTE | 2016-06-12 11:01 | NUR ---
PT RESTING IN BED WITH NO C/O PAIN AT THIS TIME. NO DISTRESS NOTED. FAMILY AT BEDSIDE.
--- NOTE | 2016-06-12 11:42 | NUR ---
NOTED ORDER FOR 2L NS BOLUS AT 500ML/HR. 1 ST 1L BAG STARTED AT THIS TIME.
--- NOTE | 2016-06-12 11:50 | NUR ---
ADMITTED PT FROM ED WITH DX SEPSIS. RECEIVED PT A/A/OX4 DENIES BYRNE. RESP EVEN AND UNLABORED WITH CLEAR BS BILAT ON RA. PLACED ON TELE #37 SHOWING NSR. PT DENIES ANY CP/PRESSURE AT THIS TIME. NOTED WITH NONPITTING EDEMA TO BLE. IV TO SL TO LW AND RW WITH NS AT 150ML/HR. ABD SOFT, OBESE, NONTENDER WITH +BS X4. DENIES ANY N/V AT THIS TIME. REPORTS SOME CONSTIPATION WITH LAST BM ON 06/07/16 REPORTED BY PT. PT REQUEST FREQUENT ASSISTANCE WITH BEDPAN REPORTING HE FEELS LIKE HE NEED TO HAVE BM BUT NOTHING HAPPENDS, WILL DISCUSS WITH MD. VOIDING FREELY INSTRUCTED TO USE URINAL TO COLLECT SAMPLE. GEN WEAKNESS S/P FALL AT HOME WHILE ATTEMPTING TO USE BR. PT STATED HE SLID DOWN TO FLOOR WITHOUT LOSS OF CONSIOUSNESS OR INJURY BUT WAS UNABLE TO GET UP ON HIS OWN. PT REPORTS INCREASED WEAKNESS TO LLE. SKIN COOL TO TOUCH INTACT WITH JAUNDICE DISCOLORATION. PT REPORTS RECENT DX OF [place] UNKNOWN SITE AND IS TO START TX AT [place] ON MON. PT ALSO REPORTS APPT WITH DR. VARGAS CARDILOGIST TOMORROW AND DAUGHTER REQUESTED FOR DR. VARGAS TO BE CONSULTED IF CARDILOGIST IS NEEDED. WILL FORWARD TO DR. FITZPATRICK. PT ORIENTED TO ROOM AND CALL LIGHT SYSTEM. SEPSIS PROTOCOL FOLLOW WITH ONGOING FLUID RESUCITATION. CALL LIGHT IN REACH NEEDS ATTENDED TO.
[2016-06-12 11:56] VITALS: BP 112/51
--- NOTE | 2016-06-12 12:26 | NUR ---
BS CHECK 226, NO COVERAGE PT NPO AT THIS TIME.
--- NOTE | 2016-06-12 12:35 | NUR ---
DR. FITZPATRICK AT BEDSIDE EVALUATING PT. MADE AWARE FAMILY CONCERNS. OBTAINED ORDER FOR DULCOLAX SUPP AND ADMINISTED AT THIS TIME. NOTED SOFT STOOL ON INSERTION. PT INSTRUCTED TO AVOID STRAING TOO MUCH AND ALOW BM TO HAPPEN MORE NATURALLY. WILL CONT TO MONITOR.
[2016-06-12] MEDS ORDERED: ACTIGALL300 MG PO (13:18)
[2016-06-12] MEDS ORDERED: NYSTOP100000 U/G TP (13:20)
[2016-06-12 13:54] LABS: CHOLESTEROL/HDL RATIO 4.4; MAGNESIUM 1.5 mg/dL (1.8-2.4); PHOSPHOROUS 3.8 mg/dL (2.5-4.9)
--- NOTE | 2016-06-12 13:55 | NUR ---
1ST BOULS BAG COMPLETED AT 1350, SECOND 1L NS BAG STARTED AT 1354 AT 500ML/HR ORDERED. PT TOLERATING WELL.
[2016-06-12 14:00] LABS: T3 TOTAL 0.73 ng/mL
[2016-06-12 14:04] LABS: FREE T4 1.51 ng/dL (0.76-1.46); FREE THYROXINE INDEX 3.4 ug/dL (1.4-4.5); T4(THYROXINE) 10.2 ug/dL (4.7-13.3)
--- NOTE | 2016-06-12 14:10 | NUR ---
OBTAINED CRITICAL LAB REPORT OF TROP 0.257 AT 1348, AND LA 3.[address] NANETTE ROMERO. MD UP AT FLOOR AT THIS TIME AT PT'S BEDSIDE DISCUSSING POC WITH FAMILY AND OBTAINING FURTHER HX. MADE AWARE AT THIS TIME OF CRITICAL LABS. WILL CONT TO MONITOR.
--- NOTE | 2016-06-12 15:50 | NUR ---
2L NS BOLUS COMPLETED AT THIS TIME. PT CONT WITH REGULAR FLUIDS AT 160ML/HR. TOLERATED WELL. DENIES ANY SOB. WILL CONT TO MONITOR.
[2016-06-12 16:20] VITALS: BP 125/57
[2016-06-12 16:40] VITALS: BP 126/58
--- NOTE | 2016-06-12 16:40 | NUR ---
1620: 1ST POST BOLUS B/P OBTAINED 125/59 WITH MAP 76, O2 SAT 98%. 1640: 2ND POST BOLUS B/P OBTAINED 126/58, MAP 80. PT RESTING COMFROTABLY DENIES ANY DISCOMFORT. CALL LIGHT IN REACH NEEDS ATTENDED TO. MESSAGE SENT TO DR. FITZPATRICK WITH POST BOLUS B/P. WILL CONT TO MONITOR.
--- NOTE | 2016-06-12 18:00 | NUR ---
DR. FITZPATRICK MADE AWARE OF KUB RESULT OF ILEUS VIA PAGE GATE. AWAITING ORDERS.
--- NOTE | 2016-06-12 18:30 | NUR ---
PT RESTING COMFORTABLY AT THIS TIME. WITH IVF NS AT 160 TO RW. PT HAS HAD MULTIPLE BM SINCE SUPP. ONE FORMED AND 3 SMALL SOFT/LOOSE STOOLS. PT REPORTS HE FEELS BETTER AFTER BM. NO ABD DISCOMFORT, N/V. VSS. CALL LIGTH IN REACH NEEDS ATTENDED TO.
[2016-06-12 19:19] LABS: UA SPECIFIC GRAVITY 1.015 (1.005-1.035); microscopic required? YES; urine erythrocyte 3+ (NEGATIVE)
--- NOTE | 2016-06-12 19:20 | NUR ---
REPORT GIVEN TO MARIA M CRUZ. MADE AWARE OF HOME MEDS VERIFIED BY PHARMACY AND [facility] INSIDE NIGHT STAND TO BE SENT BACK WITH FAMILY [facility] IN [facility].
--- NOTE | 2016-06-12 19:45 | NUR ---
RECEIVED PT AT BEDSIDE. PT WAS IN THE MIDDLE OF A BOWEL MOVEMENT. PT STATED HE NEEDED MORE TIME. WILL RETURN SHORTLY TO FINISHED ASSESSMENT.
--- NOTE | 2016-06-12 20:12 | NUR ---
PT HAS CTA LUNG SOUNDS ON RA. PULSES PRESEND WITH NO EDEMA NOTED. PT IN NO ACUTE DISTRESS AT THIS TIME. HELPED CLEAN THE PT AND APPLIED Z-SHAUNA TO HIS BUTTOCKS BECAUSE THIS PT HAS HAD 5 BM'S TODAY AND HE IS BED BOUND. NOTIFIED THE PT TO USE CALL LIGHT FOR ANY NEEDS. BED IN LOWEST POSITION. WILL CONTINUE TO MONITOR.
[2016-06-12 22:35] VITALS: BP 102/48
--- NOTE | 2016-06-12 23:05 | NUR ---
SPOKE TO PT'S DAUGHTER. SHE JUST CALLED TO CHECK IN ON HER FATHER BECAUSE HE WAS NOT RETURNING HER TEXT AND SHE GREW CONCERN. I INFORMED HER THAT HE WAS SLEEPING.
[2016-06-12 23:08] VITALS: BP 98/48
--- NOTE | 2016-06-13 02:27 | NUR ---
DR. KUMAR AWARE OF TROP RESULT. PT ON WARFARIN WITH INR OF 2.9
--- NOTE | 2016-06-13 05:19 | NUR ---
THE PT IS SLEEPING COMFORTABLY WITH EVEN RISE AND FALL OF CHEST. NO ACUTE DISTRESS NOTED AT THIS TIME. ALL NEEDS HAVE BEEN MET. THE BED IS SET TO THE LOWEST POSITION AND THE CALL LIGHT IS WITHIN REACH. WILL ENDORSE TO ONCOMING SHIFT.
--- NOTE | 2016-06-13 05:52 | NUR ---
PT IS RESTING COMFORTABLY ON RA, TEXTING WITH HIS CHILDREN. ALL NEEDS HAVE BEEN MET. BED IN LOWEST POSITION AND CALL LIGHT IS WITHIN REACH. WILL ENDORSE TO ONCOMING SHIFT.
[2016-06-13 05:58] VITALS: BP 134/56
[2016-06-13 06:41] LABS: ALKALINE PHOSPHATASE 305 U/L (46-116); ALT/SGPT 117 U/L (16-63); AST/SGOT 193 U/L (15-37); BILIRUBIN TOTAL 1.98 mg/dL (0.20-1.00); CALCIUM 8.2 mg/dL (8.5-10.1); CHLORIDE SERUM 110 mmol/L (98-107); CREATININE SERUM 2.8 mg/dL (0.7-1.3); GLUCOSE SERUM 156 mg/dL (74-106); MAGNESIUM 2.4 mg/dL (1.8-2.4); POTASSIUM SERUM 4.7 mmol/L (3.5-5.1); SODIUM SERUM 144 mmol/L (136-145)
[2016-06-13 06:48] LABS: PLATELET COUNT 131 x10^3mcL (130-400)
[2016-06-13 06:54] LABS: ALBUMIN 2.3 g/dL (3.4-5.0); TOTAL PROTEIN, SERUM 5.7 g/dL (6.4-8.2)
[2016-06-13 07:10] LABS: BASOPHIL % 0 % (0-2); RED CELL DISTRIBUTION WIDTH 17.3 % (11.5-14.5)
--- NOTE | 2016-06-13 07:30 | NUR ---
RECEIVED PT AAOX4. RESP EVEN AND UNLABORED ON RA. NO SOB NOTED. DENIES PAIN. IVF INFUSING. BED IN LOWEST POSITION, CALL LIGHT WITHIN REACH. WILL CONTINUE TO MONITOR.
--- NOTE | 2016-06-13 09:31 | NUR ---
DR. LOMBARDO MADE AWARE OF BLOOD CULTURE RESULTS.
[2016-06-13 10:13] VITALS: BP 133/65
--- NOTE | 2016-06-13 13:20 | NUR ---
ASSISTED PT TO SIT UP ON SIDE OF THE BED. FAMILY AT BEDSIDE. WILL CONTINUE TO MONITOR.
[2016-06-13 13:46] VITALS: BP 137/67
[2016-06-13 18:12] VITALS: BP 120/60
--- NOTE | 2016-06-13 19:00 | NUR ---
PT RESTING IN BED. NO ACUTE DISTRESS. BREATHING EVEN AND UNLABORED ON RA. IVF INFUSING. BED IN LOWEST POSITION, CALL LIGHT WITHIN REACH. WILL ENDORSE TO INCOMING SHIFT.
--- NOTE | 2016-06-13 20:07 | NUR ---
AAO X 4. SPEECH CLEAR AND APPROPRIATE. FOR ERCP IN AM, INSTRUCTED NO EATING OR DRINKING AFTER MIDNIGHT. VERBALIZED UNDERSTANDING. IVF OF NS AG 100ML/HR. VOIDED YELLOW URINE TO URINAL. DENIES HAVING PAIN.
[2016-06-13 21:57] VITALS: BP 149/58
--- NOTE | 2016-06-14 02:14 | NUR ---
late entry: passed small amount of loose stool. hygiene needs attended to. call light within easy reach. breathing even and unlabored on room air. sinus rhythm with pvcs noted, hr 71/min.
--- NOTE | 2016-06-14 05:07 | NUR ---
PT CALLED, STATED HAVING BLOOD IN PHLEGM. INFORMED DR. BURR. DR. BURR WENT IN ROOM TO ASSESS PT. PT STATED HE FEELS BETTER, STATED HE FELT THIS WAS WHAT WAS CAUSING HIS THROAT TO BE UNCOMFORTABLE. PT ON COUMADIN, HX OF HEART VALVE TRANSPLANT. NO NEW ORDERS AT THIS TIME. PT/INR ALREADY ORDERED FOR THIS AM.
[2016-06-14 06:07] LABS: PLATELET COUNT 142 x10^3mcL (130-400)
[2016-06-14 06:08] VITALS: BP 135/64
[2016-06-14 06:23] LABS: CHLORIDE SERUM 113 mmol/L (98-107); POTASSIUM SERUM 4.2 mmol/L (3.5-5.1); SODIUM SERUM 146 mmol/L (136-145)
[2016-06-14 06:30] LABS: BASOPHIL % 0 % (0-2); RED CELL DISTRIBUTION WIDTH 16.4 % (11.5-14.5)
[2016-06-14 06:36] LABS: CALCIUM 8.2 mg/dL (8.5-10.1); CARBON DIOXIDE 19.4 mmol/L (21-32); GLUCOSE SERUM 171 mg/dL (74-106); PHOSPHOROUS 4.3 mg/dL (2.5-4.9)
--- NOTE | 2016-06-14 06:39 | NUR ---
A&0 X 4. BREATHING EVEN AND UNLABORED. DENIES PAIN. NS INFUSING AT 100 ML/HR TO RIGHT HAND WITH NO REDNESS OR SWELLING. NPO SINCE MIDNIGHT FOR PROCEDURE TODAY. BED IN LOW POSITION, CALL LIGHT WITHIN REACH. WILL ENDORSE TO ONCOMING RN.
--- NOTE | 2016-06-14 07:20 | NUR ---
RECEIVED PT IN NO ACUTE DISTRESS. AAOX4. RESP EVEN AND UNLABORED ON RA. NO SOB NOTED. C/O MILD ABD DISCOMFORT BUT TOLERABLE. IVF INFUSING. ASSISTED PT WITH URINAL. IVF INFUSING. BED IN LOWEST POSITION, CALL LIGHT WITHIN REACH. WILL CONTINUE TO MONITOR.
--- NOTE | 2016-06-14 10:14 | NUR ---
PT WENT DOWN FOR STRESS TEST IN NO ACUTE DISTRESS.
[2016-06-14 10:20] VITALS: BP 158/70
--- NOTE | 2016-06-14 11:52 | NUR ---
PT BACK FROM STRESS TEST. NO ACUTE DISTRESS. WILL CONTINUE TO MONITOR.
[2016-06-14 14:00] VITALS: BP 101/32
--- NOTE | 2016-06-14 14:20 | NUR ---
LEXISCAN CARDIOLITE STRESS COMPLETED
--- NOTE | 2016-06-14 14:50 | NUR ---
DR. KUMAR AT BEDSIDE INSERTING PICC LINE.
[2016-06-14 18:00] VITALS: BP 124/57
--- NOTE | 2016-06-14 18:40 | NUR ---
SPOKE WITH DR. LAU AND UPDATED PT WITH NO ERCP PROCEDURE TOMORROW AND TO RESUME COUMADIN PER PROTOCOL. DR. LOMBARDO AWARE. WILL CONTINUE TO MONITOR.
--- NOTE | 2016-06-14 20:00 | NUR ---
PATIENT AWAKE IN BED. RESPIRATION EVEN AND UNLABORED, ON ROOM AIR. ONGOING 0.9% NS AT 125 CC/HR INFUSING WELL AT THE RIGHT WRIST. DENIES PAIN AT THIS TIME. PATIENT HAVE EPISODES OF LOOSE STOOLS. VOIDING FREELY, USES URINAL. GENERALIZED WEAKNESS NOTED. ASSISTED WITH ADL'S NEEDED. BLANCHABLE REDNESS TO BUTTOCKS. ON TELE #37. WILL CONTINUE TO MONITOR.
[2016-06-14 21:45] VITALS: BP 167/71
[2016-06-15 05:31] VITALS: BP 174/77
[2016-06-15 06:21] VITALS: BP 143/64
--- NOTE | 2016-06-15 06:27 | NUR ---
PATIENT RESTING IN BED. RESPIRATION EVEN AND UNLABORED. DENIES PAIN AT THIS TIME. IV SITE TO RIGHT FOREARM PATENT AND INTACT. SALINE LOCK TO LEFT WRIST PATENT AND INTACT. PICC LINE TO LEFT UPPER ARM INTACT. ASSISTED WITH NEEDS. SAFETY OBSERVED. PLACED CALL LIGHT WITHIN REACH AT ALL TIMES.
[2016-06-15 06:47] LABS: BASOPHIL % 0.5 % (0-2); PLATELET COUNT 136 x10^3mcL (130-400)
[2016-06-15 06:49] LABS: RED CELL DISTRIBUTION WIDTH 16.5 % (11.5-14.5)
--- NOTE | 2016-06-15 07:10 | NUR ---
REASSESSMENT DONE. PT AWAKE, COOPERATIVE OF CARE. ABLE TO LET NEEDS KNOWN. IV TO LEFT FOREARM WITH 18GAUGE INFUSING WELL AT 125ML/HR. IV LOCHED TO RIGHT WRIST AND PICC LINE TO ELENA. BED IN LOWEST POSITION, CALL LIGHT WITHIN REACH. WILL CONTINUE TO MONITOR.
[2016-06-15 07:24] LABS: ALKALINE PHOSPHATASE 233 U/L (46-116); ALT/SGPT 64 U/L (16-63); AST/SGOT 56 U/L (15-37); BILIRUBIN TOTAL 1.2 mg/dL (0.20-1.00); CALCIUM 8.7 mg/dL (8.5-10.1); CARBON DIOXIDE 22.1 mmol/L (21-32); CHLORIDE SERUM 114 mmol/L (98-107); CREATININE SERUM 2.9 mg/dL (0.7-1.3); GLUCOSE SERUM 111 mg/dL (74-106); MAGNESIUM 1.9 mg/dL (1.8-2.4); PHOSPHOROUS 4.1 mg/dL (2.5-4.9); POTASSIUM SERUM 3.9 mmol/L (3.5-5.1); SODIUM SERUM 148 mmol/L (136-145)
[2016-06-15 07:28] LABS: ALBUMIN 2.3 g/dL (3.4-5.0); TOTAL PROTEIN, SERUM 5.9 g/dL (6.4-8.2)
--- NOTE | 2016-06-15 09:00 | NUR ---
RECEIVED CALL FROM LAB, PTT: 74.[address] CALVILLO.
[2016-06-15 10:23] VITALS: BP 173/77
[2016-06-15 14:00] VITALS: BP 168/72
--- NOTE | 2016-06-15 14:39 | NUR ---
PT NOTE [id number] Pt IS A 81 Y/O MALE ADMITTED DUE TO C/O GENERALIZED WEAKNESS, FALL SLIPPING OFF THE BED; DX WITH SEPSIS, NSTEMI, CAD. HIP PELVIS XRAY-MILD NARROWING L HIP JT; SEVERE DEG CHANGES LOWER LUMBAR SPINE VENOUS DOPPLER- NO DVT BLE CT HEAD- NO ACUTE IC ABN PMH: BILIARY OBSTRUCTION S/P STENTING, NEWLY DX ADENOCARCINOMA, CDM, HTN, AAA W/P REPAIR Pt STATES HE WOULD BE STAYING WITH DAUGHTER UPON DC FROM HOSPITAL; DAUGHTER'S HOUSE IS 2-SH WITH 8 STEPS; BEDROOM UP. Pt WAS INDEP IN ADLs DOOR MACHINE OPERATOR, ABLE TO AMBULATE USING FWW. DME: 4WW, FWW, SCOOTER, SHOWER CHAIR. Pt WAS CLEARED FOR PT PER RN. Pt WAS FOUND AWAKE RESTING IN BED, AGREED TO PARTICIPATE W/PT. S:DENIES PAIN AT REST O:BP AT REST 156/81, HR 77; SaO2 95% ON ROOM AIR BED MOBILITY: SUPINE<->SIT MAX X2 TRANSFERS: SIT-STAND MAX X2; STAND-SIT MOD X2 GAIT 24 FT FWW MOD ASSIST X2; SLOW CAS WITH DECREASED STRIDE LENGTH; NO ANTALGIC GAIT NOTED; DENIES PAIN ON LEFT HIP DURING GAIT, BUT PAIN IS EXPERIENCED WITH EXAGGERATED LEFT HIP FLEXION. Pt WAS ASSISTED BTB, MADE COMFORTABLE WITH BLANKET, IV LINE INTACT, CALL LIGHT AND TABLE IN REACH; 3 SIDERAILS UP. Pt WAS LEFT IN THE PRESENCE OF THE DAUGHTER AND GRANDDAUGHTER. RN NOTIFIED. A:Pt DEMONSTRATES WEAKNESS, IMPAIRED BALANCE, AND GAIT INSTABILITY REQUIRING MOD ASSIST X2; FALL RISK. Pt WAS EDUCATED ON PROPER HAND PLACEMENT FOR SAFE SIT-STAND TRANSFERS, FAIR RETURN DEMO. P:POC TO CONSIST OF THEREX, THERACT, GAIT TRAINING, BALANCE EX, SAFETY EDUC; ONCE DAILY 6X/WK X1 WEEK. REHAB POST ACUTE IS RECOMMENDED, SNF VS HHPT. DX AND POC DISCUSSED W/DOOR MACHINE OPERATOR. EVAL38 2PA(2) ASSIST [id number], [id number], TUG SCORE=19sec [id number] THEREX FOR BOTH LE PERFORMED IN SITTING INCLUDING LAQ, ANKLE PUMPS, AND SEATED MARCHING; X 1O REPS EACH, AAROM FOR LLE DUE TO PAIN LIMITING MOVEMENT. Pt WAS INSTRUCTED ON AROME FOR BOTH LE TO BE PERFORMED IN SUPINE TOLERATED. THEREX8
--- NOTE | 2016-06-15 15:20 | NUR ---
PASSED AFTERNOON MEDS. PT TOLERATED WELL. NO DISTRESS NOTED. NO REPORTS OF PAIN. FAMILY AT BEDSIDE. CALL LIGHT WITHIN REACH.
--- NOTE | 2016-06-15 15:58 | NUR ---
1. Recommend Mechanical Soft, Chopped, CCHO-75 gm, 2 gm Na diet.
--- NOTE | 2016-06-15 15:58 | NUR ---
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, type 2 DM, HTN, AAA s/p repair PSHx: Appendectomy (20 years old), cholecystectomy, L eye cataract removal (11/2012), R inguinal hernia repair (47 years old), ascending aortic aneurysm, aortic valve replacement with Medtronic, aortic abraham valved collagen conduit (02/2002), tonsillectomy, vasectomy x2, bone spur bilateral heels removed, eye lid surgery bilateral (1987) Labs: Na 148 H, BG 111 H, BUN 31 H, Cr 2.9 H, ALB 2.3 L, TBili 1.2 H, AST 56 H, ALT 64 H, H/H 9.6/29 L; (06/14) Troponin 0.165 H; (06/12) Lactic Acid 3.5 H, A1C 6.1 Meds: D50, humulin R, levemir, Prilosec, NS IV, theragran, zofran Current Diet Order: Mechanical Soft, Chopped, Cardiac Prior Diet Order: Full Liquid PO Intakes: (06/13) B: 80%, L: 100%, D: 10% Ht: 68", 5' 8". Wt: 273 lb, 124 kg. BMI: 41.7 kg/m2 (Obesity Class III) IBW: 154 lb, 70 kg. %IBW: 177%. Adj BW: 184 lb, 84 kg. UBW: 273 lb, 124 kg. Wt Hx: (05/16/16) 274 lb, 125 kg. Age: 81 Y/O M Food Allergies: None Skin: Intact. Seven 17. Edema: 1+ BLE GI: Abd soft, obese. Active bowel sounds. Last BM 06/14. Pt found with transaminitis with severe sepsis secondary to possible cholangitis per doctor's notes. Per doctor's H&P documentation, pt plans to meet with oncologist for chemotherapy, not currently a candidate for Whipple procedure until cardiac status is cleared and loses at least 30-40 lb. Per doctor's progress note, no acute events overnight, stress test with Dr. Barraza pending today, ERCP with Dr. Bee with stent placement Monday, will have appointment with Oncologist next week, receiving IV ABX. Pt was seen resting in bed, and daughter at bedside. Daughter participated mostly in RD verbal interview. Daughter reported that pt did not like the hamburger for lunch due to tiana being too dry. RD offered side of gravy with meals, daughter agreeable for pt to try. Daughter also stated that pt has been eating fairly so far, requested for salads for pt, however, RD noted that pt is on mechanical soft, chopped diet, salads are not offered on menu due to rawness of salads, can be a potential risk for aspiration/swallowing if pt unable to tolerate. Daughter also stated that pt likes fruit, cottage cheese, also mentioned that pt will likely be discharged tomorrow. Daughter had requested for dinner menu for tonight, RD acknowledged, informed S staff to provide. Spoke with Dr. Lindsay, doctor stated that pancreatic CA is suspected, pt already has an appointment with oncologist next week, will start Coumadin tomorrow. RD relayed recommendations to doctor, doctor agreeable. Problem with: N: None. V: None. D: None. C: None. Problems with: Chewing: None. Swallowing: None. Current Appetite: Fair to good Recent Weight Change: Unsure per daughter. % Weight Change: N/A Vitamin/Supplement use: None Diet at Home: Regular Physical Activity: Ambulates with a cane Education: RD left nutrition education materials with pt on prior visit 05/16/16, family declined further education at this time. Estimated Nutritional Needs Based IBW 154 lb, 70 kg Energy: 3955-7791 kcal/day (30-35 kcal/kg for Suspected Pancreatic CA) Protein: 70-105 gm/day (1-1.5 gm/kg for Suspected Pancreatic CA) Fluids: 1750 ml/day (25 ml/kg for Maintenance) or per doctor Nutrition Diagnosis Increase nutritional needs related to increase metabolic demands as evidenced by common bile duct stricture secondary to suspected pancreatic CA, possible severe sepsis secondary to possible cholangitis Intervention 1. Recommend Mechanical Soft, Chopped, CCHO-75 gm, 2 gm Na diet. Monitor/Evaluate Goal: PO intakes to meet at least 50-75% of estimated needs with tolerance Monitor: PO intakes, tolerance to diet, labs, skin integrity, GI function, weights F/U in 3-5 days as MODERATE risk (6-06/20)
--- NOTE | 2016-06-15 16:02 | NUR ---
PT TEARFUL OF DIAGNOSES, EXPRESSING CONCERNS OF MEDICAL OUTCOMES. SAT DOWN WITH PATIENT. ACTIVELY LISTENED TO PATIENT AND PROVIDED PRESENCE. PT STATES FEELING RELIEVE FROM SMALL SESSION. CALL LIGHT WITHIN REACH.
--- NOTE | 2016-06-15 17:31 | NUR ---
DUE MEDS GIVEN. PT TOLERATED WELL. PT STATES HE NEEDS MORE INSULIN AT HOME, INFORMED PRIMARY NURSE
[2016-06-15 17:51] VITALS: BP 162/72
--- NOTE | 2016-06-15 20:00 | NUR ---
AWAKE AND VERBALLY RESPONSIVE WITH SLOGHT HARD OF HEARING. SKIN WARM AND DRY TO TOUCH. RESPIRATION EVEN AND UNLABORED. DENIES ANY PAIN/DICOMFORT AT THIS TIME. CONTINUES ON ATB IVPB WITHOUT ADVERSE REACTION NOTED. WILL CONTINUE TO MONITOR.
[2016-06-15 21:00] VITALS: BP 142/66
--- NOTE | 2016-06-16 00:10 | NUR ---
REPOSIOTNED FOR COMFORT. DENIES ANY PAIN/DISCOMFORT. USES URINAL FOR BLADDER ELIMINATION. KEPT CLEAN AND DRY.
--- NOTE | 2016-06-16 06:22 | NUR ---
ALL DUE MEDICATIONS GIVEN AND WELL TOELRATED. NO ADVERSE REACTION NOTED FROM ATB THERAPY. KEPT CLEAN AND DRY. ALL NEEDS ATTENDED.
[2016-06-16 06:35] VITALS: BP 143/70
[2016-06-16 06:54] LABS: CALCIUM 8.8 mg/dL (8.5-10.1); CHLORIDE SERUM 112 mmol/L (98-107); CREATININE SERUM 2.8 mg/dL (0.7-1.3); GLUCOSE SERUM 105 mg/dL (74-106); MAGNESIUM 1.6 mg/dL (1.8-2.4); PHOSPHOROUS 4.1 mg/dL (2.5-4.9); POTASSIUM SERUM 3.8 mmol/L (3.5-5.1); SODIUM SERUM 146 mmol/L (136-145)
[2016-06-16 07:25] LABS: BASOPHIL % 0.3 % (0-2); PLATELET COUNT 138 x10^3mcL (130-400)
--- NOTE | 2016-06-16 07:25 | NUR ---
REASSESSMENT DONE. PT AWAKE, COOPERATIVE OF CARE. ABLE TO LET NEEDS KNOWN. DENIES CP, SOB, ABD PAIN. IV SITES TO RFA, LEFT WRIST AND PICC LINE ACCESS TO JOSELO. IV INFUSING WELL TO RFA NS AT 70ML/HR. BED IN LOWEST POSITION, CALL LIGHT WITHIN REACH. WILL CONTINUE TO MONITOR.
[2016-06-16 07:41] LABS: RED CELL DISTRIBUTION WIDTH 16.1 % (11.5-14.5)
--- NOTE | 2016-06-16 08:20 | NUR ---
RECEIVED LAB VALUES FROM [facility]. PTT: 75.4; INR: 5.0 DR. LOMBARDO MADE AWARE OF RESULTS. ORDERED FOR PT TO RESUME DIET.
[2016-06-16 09:44] VITALS: BP 161/85
--- NOTE | 2016-06-16 12:25 | NUR ---
BLOOD GLUCOSE: 165 COVERED WITH INSULIN PER SLIDING SCALE. PT TOLERATED WELL. PT DENIES DISCOMFORT AT MOMENT. CALL LIGHT WITHIN REACH.
--- NOTE | 2016-06-16 14:00 | NUR ---
P.T. NOTES [id number] S:Pt WAS SEEN AWAKE & ALERT IN BED, SPEAKS ESTONIAN, ORIENTED x3, ABLE TO FOLLOW COMMANDS, AGREEABLE & COOPERATIVE W/ P.T.; [place]LA[place]OCK; MOTIVATED W/ P.T.; NO C/O PAIN OR DIZZINESS AT THIS TIME; STATES FEELING BETTER TODAY THAN YESTERDAY; C/O (L)LE WEAKNESS. O:BED MOBILITY: MOD/MIN ASSIST IN SUPINE TO SIT, ABDOMEN PROTRUDED TRANSFERS: MOD ASSIST IN SIT TO STAND W/ FWW, MOD/MIN ASSIST W/FWW IN W/C TRANSFERS GAIT: MOD/MIN ASSIST W/ FWW X 42 FT, FOLLOWED W/ W/C FOR SAFETY, ANOTHER P.T. STAFF ON SBA FOR SAFETY, UNABLE TO AMBULATE FARTHER DUE TO WEAKNESS, FATIGUE; (L)KNEE TENDS TO BUCKLE, NO NOTED LOSS OF BALANCE AT THIS TIME STAIRS: MOD/MIN ASSIST+2 PERSONS X 10 STEPS Pt WAS GIVEN THERA EXER UE/LE X 10 REPS. Pt ASSISTED TO BED SAFELY; HOB ELEVATED, CALL CRUZ, PHONE, TABLE IN REACH; APPRECIATIVE; NURSE AWARE; Pt STATES HE SAT UP IN CHAIR THIS MORNING ALREADY W/ NURSE STAFF. A:Pt DEMO GOOD RESPONSE TO TX; FALL RISK, ADENOCARCINOMA; Pt EDUC ON SAFE GAIT, STAIR MGMT, HAND PLACEMENT FOR SAFE TRANSFERS, HEP, USE OF CALL LIGHT FOR NURSE ASSIST, VERBALIZED UNDERSTANDING, GOOD FOLLOW THRU; WADDLING GAIT, NARROW MONI, OBESE, MILD (B)GENU VARUM; PROGRESSING W/ GAIT ENDURANCE & FUNC MOB; BR=161/72, 150/77; HR=74^ 79; O2 SAT ROOM AIR=95% P: CONT PT; POC REVIEWED W/ TAPE RECORDING MACHINE OPERATOR; WILL BENEFIT W/ P.T. AFTER ACUTE STAY PRIOR TO RETURNING HOME W/ FAMILY. EX8,TA15,GT30,2PA
--- NOTE | 2016-06-16 14:45 | NUR ---
PERFORMED BED BATH. CHANGED LINENS. PT TOLERATED WELL. PT STATES FEELING MUCH BETTER. BED IN LOWEST POSITION, CALL LIGHT WITHIN REACH.
[2016-06-16 17:15] VITALS: BP 154/65
--- NOTE | 2016-06-16 20:19 | NUR ---
AWAKE AND VERBALLY RESPONSIVE. ABLE TO MAKE NEEDS KNOWN. SKIN WARM AND DRY TO TOUCH. RESPIRATION EVEN AND UNLABORED. NO S/S OF ACUTE DISTRESS. DENIES ANY PAIN/DISCOMFORT AT THIS TIME. FAMILY AT BEDSIDE VERY SUPPORTIVE OF PATIENT'S PLAN OF CARE. WILL CONTINUE TO MONITOR.
[2016-06-16 22:00] VITALS: BP 133/52
--- NOTE | 2016-06-17 00:10 | NUR ---
USES URINAL FOR BLADDER ELIMINATION. KEPT CLEAN AND DRY. DENIES ANY PAIN/DISCOMFORT AT THIS TIME. PLACED CALL LIGHT WITHINR REACH.
[2016-06-17 05:15] VITALS: BP 139/65
[2016-06-17 05:57] LABS: BASOPHIL % 0.4 % (0-2); PLATELET COUNT 144 x10^3mcL (130-400)
--- NOTE | 2016-06-17 05:57 | NUR ---
CONTINUES ON ATB IVPB WITHOUT ADVERSE REACTION NOTED. KEPT CLEAN AND DRY. DENIES ANY PAIN/DISCOMFORT AT THIS TIME. ALL NEEDS ATTENDED.
[2016-06-17 06:10] LABS: CALCIUM 8.7 mg/dL (8.5-10.1); CARBON DIOXIDE 25.2 mmol/L (21-32); CHLORIDE SERUM 111 mmol/L (98-107); CREATININE SERUM 2.5 mg/dL (0.7-1.3); GLUCOSE SERUM 137 mg/dL (74-106); MAGNESIUM 1.8 mg/dL (1.8-2.4); POTASSIUM SERUM 3.7 mmol/L (3.5-5.1); SODIUM SERUM 147 mmol/L (136-145)
--- NOTE | 2016-06-17 07:30 | NUR ---
RECEIVED PT IN NO ACUTE DISTRESS. AAOX4. RESP EVEN AND UNLABORED ON RA. C/O SMALL AMT BLOOD IN PHLEGHM. ELENA PICC. IVF INFUSING TO R WRIST AND H/L TO L WRIST. GEN WEAKNESS. DENIES PAIN. BED IN LOWEST POSITION, CALL LIGHT WITHIN REACH. WILL CONTINUE TO MONITOR.
--- NOTE | 2016-06-17 07:45 | NUR ---
PT SITTING UP IN CHAIR FOR BREAKFAST. WILL CONTINUE TO MONITOR.
[2016-06-17 08:30] VITALS: BP 133/74
[2016-06-17 09:15] VITALS: BP 138/68
--- NOTE | 2016-06-17 12:05 | NUR ---
PT WITH SMALL AMOUNT OF NOSEBLEED, DR. LOMBARDO AWARE. PT IN NO ACUTE DISTRESS. SITTING UP AT THE EDGE OF THE BED. NO NEW ORDERS AT THIS TIME. WILL CONTINUE TO MONITOR.
[2016-06-17 14:28] LABS: BASOPHIL % 0.1 % (0-2); PLATELET COUNT 141 x10^3mcL (130-400)
[2016-06-17 14:33] LABS: RED CELL DISTRIBUTION WIDTH 16.3 % (11.5-14.5)
--- NOTE | 2016-06-17 14:41 | NUR ---
PT NOTES TIME: [id number] TE4',TA10',GT24',2PA((1)SAFETY STANDBY) S:CHART REVIEWED AND CLEARED FOR PT BY RN. PATIENT IN HIGH HARRIS POSITION RESTING. DENIES PAIN OR SOB AT THIS TIME AND IS AGREEABLE TO PARTICIPATE IN THERAPY. IV LINE HEPLOCKED BY RN. O:BED: SBA/CGA SUPINE<->SIT VIA LOG ROLLING WITH VC'S FOR PROPER HAND PLACEMENT/SEQUENCING. TRANSFER: MIN/MOD SIT<->STAND WITH VC'S FOR PROPER HAND PLACEMENT AND SEQUENCING WITH FWW, REMINDERS ON PUSH OFF FROM BED VS. FWW. NO DIZZINESS OR INCREASED PAIN EXPRESSED BY PATIENT. GAIT: MIN/CGA FWW 60'x1 WITH 1 SEATED REST BREAK TAKEN IN W/C. VC'S FOR PLB TECH, PACING AND POSTURAL AWARENESS. SLOW CAS NOTED AND SHORTEN STEP LENGTH. PATIENT DID NOT PRESENT WITH LOB DURING GAIT OR TRANSFER, BUT FATIGUES EASILY IN UE. STAIRS: MIN/MOD 5x2 STEPS WITH BILATERAL RAIL ASSIST. VC'S AND TC'S GIVEN FOR PROPER SEQEUNCING AND BODY MECHANICS, NO LOB PRESENTED, BUT RELIES HEAVY ON UE TO PULL SELF WITH RAILS. PATIENT DEMONSTRATES EAGERNESS TO CONTINUES STAIRS, BUT REMINDERS ON ENERGY CONSERVATION TECHNIQUES FOR SAFETY GIVEN. TE: SEATED KNEE EXT/FLEX WITH ANKLE DF/PF, SHOULDER SHRUGS/CIRCLES, LATERAL REACH CROSSING MIDLINE WITH BICEP CURLS. (ALL TOLERATED WITH LIGHT STRETCHES) PATIENT EDUCATED WITH SAFETY IN STAIRS, HEP, ENERGY CONSERVATION, PACING, POSTURAL AWARENESS, ALL WITH VERBAL UNDERSTANDING. PATIENT COOPERATIVE AND APPRECIATIVE OF PT CARE, RN MADE AWARE. P:CONT WITH POC, PROGRESS DISCUSSED WITH PRIMARY PT.
--- NOTE | 2016-06-17 16:55 | NUR ---
INR 6.[address] LOMBARDO AWARE. NO S/S ACTIVE BLEEDING NOTED AT THIS TIME. FAMILY AT BEDSIDE. WILL CONTINUE TO MONITOR.
--- NOTE | 2016-06-17 18:59 | NUR ---
PT RESTING IN BED IN NO ACUTE DISTRESS. NO ACTIVE BLEEDING NOTED. PICC LINE DRESSING CHANGED REQUESTED BY PT. GOWN CHANGED. IV FLUIDS INFUSING. BED IN LOWEST POSITION. CALL LIGHT IN REACH. WILL ENDORSE TO INCOMING SHIFT.
--- NOTE | 2016-06-17 19:50 | NUR ---
A & O X 4. LUNG SOUNDS CLEAR AND DIMINISHED BILATERALLY. DENIES PAIN. RADIAL AND PEDAL PULSES PALPABLE. PICC LINE TO LEFT UPPER EXTREMITY NO REDNESS OR SWELLING, DRESSING DRY AND INTACT. INFUSING NS TO RIGHT WRIST AT 35 ML/HR, NO REDNESS OR SWELLING. BOWEL SOUNDS ACTIVE X 4 QUADRANTS, LAST BM ON 06/17/16 WAS SOFT BUT FORMED, PER PATIENT. SITS UP IN BED TO VOID IN URINAL, ROBERT COLORED. SKIN DRY AND INTACT. BED IN LOW POSITION, CALL LIGHT WITHIN REACH. INSTRUCTED TO USE CALL LIGHT FOR ASSISTANCE.
[2016-06-17 20:41] VITALS: BP 111/57
--- NOTE | 2016-06-18 02:04 | NUR ---
RESTING IN BED WITH EYES CLOSED. HOB ELEVATED 30 DEGREES. LAYING ON RIGHT SIDE. BREATHING EVEN AND UNLABORED. NO ACUTE DISTRESS NOTED. BED IN LOW POSITION, CALL LIGHT WITHIN REACH. WILL CONTINUE TO MONITOR.
[2016-06-18 05:29] VITALS: BP 126/62
[2016-06-18 06:33] LABS: BASOPHIL % 0.3 % (0-2); PLATELET COUNT 134 x10^3mcL (130-400)
[2016-06-18 06:40] LABS: CALCIUM 8.9 mg/dL (8.5-10.1); CARBON DIOXIDE 22.5 mmol/L (21-32); CHLORIDE SERUM 111 mmol/L (98-107); CREATININE SERUM 2.5 mg/dL (0.7-1.3); GLUCOSE SERUM 151 mg/dL (74-106); MAGNESIUM 1.7 mg/dL (1.8-2.4); PHOSPHOROUS 3.8 mg/dL (2.5-4.9); POTASSIUM SERUM 3.8 mmol/L (3.5-5.1); SODIUM SERUM 147 mmol/L (136-145)
[2016-06-18 06:51] LABS: RED CELL DISTRIBUTION WIDTH 16.2 % (11.5-14.5)
--- NOTE | 2016-06-18 07:08 | NUR ---
RESTING WITH EYES CLOSED. EASILY AWAKES TO VERBAL STIMULI. IVF INFUSING NS AT 35 ML/HR TO RIGHT WRIST, NO REDNESS OR SWELLING. PICC LINE DRESSING DRY AND INTACT. DENIES SOB, DENIES PAIN. NO ACUTE CHANGES DURING SHIFT. BED IN LOW POSITION, CALL LIGHT WITHIN REACH. WILL ENDORSE TO ONCOMING NURSE.
--- NOTE | 2016-06-18 07:45 | NUR ---
RECEIVED PT IN BED ALERT AND ORIENTED X4. DENIES ANY PAIN OR DISCOMFORT. BREATHING EVEN AND UNLABORED ON RA, NO SOB, LUNG SOUNDS DIMINISHED. ABD SOFT/OBESE, BS ACTIVE, DENIES ABD PAIN OR N/V. REPORTS BLACK, LOOSE STOOLS THIS AM. VOIDS FREELY USING URINAL. AMBULATORY WITH ASSISTANCE. NO EDEMA NOTED. SKIN CDI. PICC LINE TO L UPPER ARM WITH DRESSING CDI. INSTRUCTED TO USE CALL LIGHT WHEN IN NEED OF ANY ASSISTANCE.
--- NOTE | 2016-06-18 08:30 | NUR ---
DR ABARCA AND DR LOMBARDO MADE AWARE OF PTS BLACK, LOOSE STOOLS THIS AM.
--- NOTE | 2016-06-18 09:30 | NUR ---
SPOKE TO DR VARGAS ON PHONE, MADE AWARE OF INR LEVEL. RECEIVED NEW ORDER FOR LOVENOX ONCE, WILL CARRY OUT.
[2016-06-18 09:49] LABS: BILIRUBIN DIRECT 3.72 mg/dL (0.0-0.2); BILIRUBIN TOTAL 3.95 mg/dL (0.20-1.00)
[2016-06-18 09:50] LABS: TOTAL PROTEIN, SERUM 5.7 g/dL (6.4-8.2)
[2016-06-18 11:48] LABS: BASOPHIL % 0.1 % (0-2); PLATELET COUNT 138 x10^3mcL (130-400)
[2016-06-18 11:51] LABS: RED CELL DISTRIBUTION WIDTH 16.3 % (11.5-14.5)
--- NOTE | 2016-06-18 12:50 | NUR ---
PT NOTES TIME S: CLEARED BY RN FOR P.T. TX. PATIENT IS AWAKE & ALERT IN A SEMI HARRIS POSITION IN BED. AGREEABLE TO P.T. TX. C/O L HIP PAIN PRETX 04/22, DURING TX 07/23, & AFTER TX 07/23. RN IS AWARE. O: VS AT REST BP 137/70, HR 94 BPM, SPO2 ON RA 97% BED MOBILITY: SUPINE<>SIT VIA LOGROLL CGA. PATIENT ABLE TO DEMO USE OF SIDERAILING TO FACILITATE BED MOBILITY. VC GIVEN W/ SEQUENCING FOR BED MOBILITY. TRANSFER: SIT<>STAND W/ FWW MIN ASSIST. VC GIVEN W/ PROPER SEQUENCE FOR SIT<>STAND TRANSFERS DUE TO PATIENT TENDS TO PULL FROM FWW TO STAND. GAIT: 60FT W/ FWW MOD/MIN ASSIST. 1 SEATED REST PERIOD. CHAIR TO FOLLOW. L KNEE BUCKING X 3. INCREASE FORWARD TRUNK LEAN ON FWW W/ CUES TO CORRECT POSTURE. DECREASE GAIT VELOCITY. C/O INCREASE FATIGUE ON L LE & BILAT UE DURING GAIT TRAINING. EDUCATED PATIENT ON SAFETY FOR FALL PREVENTION, ENERGY CONSERVATION, & HEP FOR STRENGTHENING W/ G UNDERSTANDING. COOPERATIVE & APPRECATIVE OF CARE. THER EX ANKLE DF/PF, QUAD SETS, GLUTEAL SETS, KNEE FLEX/EXT, HIP ABD/ADD, SHOULDER FLEX, ELBOW FLEX/EXT YANIQUE. PATIENT IS SAFELY & COMFORTABLY IN A SEMI HARRIS POSITION IN BED W/ CALL BUTTON & TABLE IN REACH. RN NOTIFIED. P: DISCUSSED W/ PRIMARY PHYSICAL THERAPIST GT15',TA15',TE8',PVE(ADDITIONAL STAFF PRESENT DURING GAIT TRAINING)
[2016-06-18 13:16] VITALS: BP 121/82
--- NOTE | 2016-06-18 14:45 | NUR ---
PT REPORTS HAVING LOOSE, BLACK BM X6-[address] LOMBARDO MADE AWARE AND OBTAINED ORDER TO GIVE PT IMODIUM.
[2016-06-18 15:21] VITALS: BP 121/82
[2016-06-18] MEDS ORDERED: BG FS (15:41)
[2016-06-18] MEDS ORDERED: MYCLUD SS (16:10)
[2016-06-18] MEDS ORDERED: LAC PO (16:26)
[2016-06-18] MEDS ORDERED: ZOS2PM IV (16:36)
[2016-06-18] MEDS ORDERED: NOR5 PO (16:58)
--- NOTE | 2016-06-18 17:30 | NUR ---
PT TO BE PICKED UP BY [facility] FOR TRANSFER TO [facility] AT 6PM. REPORT GIVEN TO ANTHONY HO IN [place].
[2016-06-18 17:39] VITALS: BP 127/63
--- NOTE | 2016-06-18 19:10 | NUR ---
[facility] HERE TO GI TECH PT. PT BROUGHT OFF FLOOR VIA [facility] BY EMT AND PTS FAMILY. PT TO BE TRANSFERRED TO [facility].
== END 2016-06-18 19:13 | DRG 871 ==
LOC: ED 08:03 → MU 10:10 → DU 10:10 → MU 06-15 18:19
PROVIDERS: Emergency Medicine; Family Medicine; Internal Medicine Gastroenterology; ADMIT Family Medicine
DX: A40.8 Other streptococcal sepsis (principal); N17.0 Acute kidney failure with tubular necrosis; E43 Unspecified severe protein-calorie malnutrition; I50.43 Acute on chronic combined systolic (congestive) and diastolic (congestive) heart failure; I21.4 Non-ST elevation (NSTEMI) myocardial infarction; J98.11 Atelectasis; Z68.41 Body mass index [BMI] 40.0-44.9, adult; D68.69 Other thrombophilia; B37.89 Other sites of candidiasis; C25.9 Malignant neoplasm of pancreas, unspecified; N39.0 Urinary tract infection, site not specified; I42.9 Cardiomyopathy, unspecified; R65.20 Severe sepsis without septic shock; A41.81 Sepsis due to Enterococcus; I11.0 Hypertensive heart disease with heart failure; R31.29 Other microscopic hematuria; E83.42 Hypomagnesemia; D64.9 Anemia, unspecified; E11.51 Type 2 diabetes mellitus with diabetic peripheral angiopathy without gangrene; E66.01 Morbid (severe) obesity due to excess calories; Z79.4 Long term (current) use of insulin; Z95.2 Presence of prosthetic heart valve; Z79.01 Long term (current) use of anticoagulants
CPT/HCPCS: 80307; 82962; 83880; 84439; 94150; 97110-GP; 97116-GP; 97530-GP; A9500; C1751; J0696; J1642; J1650; J1815; J1940; J1956; J2001; J2060; J2270; J2405; J2543; J2765; J2785; J3430; J3475; J3490; J7030; Q0092